=== PATIENT | female | born 1985 | race Caucasian/White ===

== ENCOUNTER 2018-08-26 02:41 | Emergency (ER) | payer SELFPAY ==
[~2018-08-26] VITALS: Ht 157.5 cm; Wt 49.9 kg
[2018-08-26 03:00] VITALS: BP 106/75
--- NOTE | 2018-08-26 03:00 | NUR ---
ED Nurse Note: PT walked into ER stating she has been having episodes of nausea and vomiting episodes since 10 PM yesterday. the pt also stated that she has ate pasta at 8 AM, and then some "tongan soup" at 2 PM. Pt states she feel one of the foods might have caused the nausea episodes as she felt an "unusual abdominal discomfort" at 10 PM pt states since then, shes been having a mix of vomiting episode with either no sumbstance or substance thrown up.
--- NOTE | 2018-08-26 03:03 | Emergency Room Report ---
History of Present Illness General Chief Complaint: Abdominal Pain Source: Patient Present Illness HPI Is a 32-year-old female with no past medical history. She presents with chief complaint of nausea vomiting diarrhea. Onset 1 hour ago. Vomiting is none runny nonbilious. Diarrhea is profuse. Also with abdominal cramping. Nothing made it better. Nothing made it worse. She had postural around 8 PM. She thought maybe food poisoning. Denies any sick contact. Allergies: Coded Allergies: No Known Allergies (Unverified , 08/26/18) Patient History Past Medical History: none, see triage record, old chart reviewed Past Surgical History: none Pertinent Family History: none Social History: Denies: smoking Last Menstrual Period: 08/11/2018 Now: No : 1 Para: 1 Reviewed Nursing Documentation: PMH: Agreed; PSxH: Agreed Review of Systems Eye: Denies: eye pain, blurred vision ENT: Denies: ear pain, nose congestion, throat swelling Respiratory: Denies: cough, shortness of breath Cardiovascular: Denies: chest pain, palpitations Gastrointestinal: Reports: abdominal pain, diarrhea, nausea, vomiting Musculoskeletal: Denies: back pain, joint pain Skin: Denies: rash Neurological: Denies: headache, numbness Endocrine: Denies: increased thirst, increased urine Hematologic/Lymphatic: Denies: easy bruising All Other Systems: negative except mentioned in HPI Physical Exam Vital Signs Date Time Temp Pulse Resp B/P (MAP) Pulse Ox O2 Delivery O2 Flow Rate FiO2 08/26/18 02:48 97.5 94 18 106/75 100 Room Air vitals unremarkable Sp02 EP Interpretation: reviewed, normal General Appearance: well appearing, no apparent distress, alert Head: normocephalic, atraumatic Eyes: bilateral eye PERRL, bilateral eye EOMI ENT: hearing grossly normal, normal pharynx Neck: full range of motion, supple, no meningismus Respiratory: chest non-tender, lungs clear, normal breath sounds Cardiovascular #1: regular rate, rhythm, no murmur Gastrointestinal: non tender, no mass, no organomegaly, no bruit, non-distended , decreased bowel sounds Musculoskeletal: back normal, gait/station normal, normal range of motion Psychiatric: mood/affect normal Skin: warm/dry Medical Decision Making Diagnostic Impression: Primary Impression: Abdominal pain Qualified Codes: R10.84 - Generalized abdominal pain Additional Impression: Nausea vomiting and diarrhea ER Course Patient presents with abdominal pain with nausea vomiting and diarrhea. She showed much better now. She does have leukocytosis. Exam is benign. No localizing pain to the right lower quadrant. She is tolerating by mouth intake and urinating now. She was concerned about a cause of a CT scan. Because symptoms improve and at this moment in time, appendicitis is low on my differential, we'll hold off CT scan for now. If patient has fever or pain localizing to right lower quadrant, told patient come back for CT scan. This is most likely a viral infection versus food poisoning. We will discharge home. No evidence of acute abdomen or obstruction. Last Vital Signs Date Time Temp Pulse Resp B/P (MAP) Pulse Ox O2 Delivery O2 Flow Rate FiO2 08/26/18 02:48 97.5 94 18 106/75 100 Room Air Status: improved Disposition: HOME, SELF-CARE Condition: Stable Scripts Ondansetron (Zofran) 4 Mg Tablet 4 MG ORAL Q6H PRN for Nausea & Vomiting, #10 TAB 0 Refills Prov: Raheel Baum MD 08/26/18 Additional Instructions: Follow-up with your DrUbaldo in 2-3 days if not better. Return if symptom worsen or having fever or pain localized to the right lower quadrant. Raheel Baum MD Aug 26, 2018 03:03
[2018-08-26] MEDS ORDERED: Ketorolac 30mg Inj IV ONE (03:15)
[2018-08-26 03:26] LABS: BASOPHILS % (AUTO) 0.8 % (0.0-2.0); EOSINOPHILS % (AUTO) 1.3 % (0.0-3.0); HEMATOCRIT 46.1 % (37.0-47.0); HEMOGLOBIN 15.8 G/DL (12.0-16.0); LYMPHOCYTES % (AUTO) 9.9 % (20.0-45.0); MEAN CORPUSCULAR VOLUME 94 FL (80-99); PLATELET COUNT 191 K/UL (150-450); RED BLOOD COUNT 4.89 M/UL (4.20-5.40); RED CELL DISTRIBUTION WIDTH 10.4 % (11.6-14.8); WHITE BLOOD COUNT 15.8 K/UL (4.8-10.8)
[2018-08-26] MEDS ORDERED: Morphine Sulfate 4mg/ml Inj (IV/IM USE ONLY) IVP ONE (03:45)
[2018-08-26] MEDS ORDERED: Isovue-300 100ml vial INJ PRN (03:45)
[2018-08-26 03:56] LABS: APPEARANCE,URINE CLEAR; BILIRUBIN, URINE NEGATIVE (NEGATIVE); COLOR,URINE PALE YELLOW; GLUCOSE, URINE (UA) NEGATIVE (NEGATIVE); KETONES,URINE 2+ (NEGATIVE); LEUKOCYTE ESTERASE ,URINE NEGATIVE (NEGATIVE); NITRITE,URINE NEGATIVE (NEGATIVE); PH,URINE 8 (4.5-8.0); PROTEIN,URINE NEGATIVE (NEGATIVE); UROBILINOGEN,URINE NORMAL MG/DL (0.0-1.0)
[2018-08-26 04:32] LABS: ANION GAP 10 mmol/L (5-15); BLOOD UREA NITROGEN 16 mg/dL (7-18); CARBON DIOXIDE 22 MMOL/L (21-32); CHLORIDE 108 MMOL/L (98-107); CREATININE 0.7 MG/DL (0.55-1.30); POTASSIUM 3.9 MMOL/L (3.5-5.1); SODIUM 140 MMOL/L (136-145)
[2018-08-26 04:34] VITALS: BP 106/75
[2018-08-26 05:00] VITALS: BP 110/74
--- NOTE | 2018-08-26 05:00 | NUR ---
ED Nurse Note: Pt is Dc per ERMD order. pt expresses full understanding of ER treatment, DC notes and prescriptions. pt has left with all belongings, DC notes, and prescriptions. ID band removed. IV removed. vital signs are stable. Pt status, condition, and vital signs have been reported to MD prior to DC. pt is instructed to follow up with primary MD as soon as possible. pt is instructed to return to ER if reocurrance of symptoms. pt is able to ambulate with steady gait.
[2018-08-26] MEDS ORDERED: ZOFRAN4 MG ORAL (05:15)
== END 2018-08-26 05:00 | disposition home or self-care (01) ==
LOC: EMR 03:07
DX: R10.9 Unspecified abdominal pain (principal); R11.2 Nausea with vomiting, unspecified; R19.7 Diarrhea, unspecified; D72.829 Elevated white blood cell count, unspecified
CPT/HCPCS: 36415; 80048; 81003; 81025; 85025; 96361; 96374; 96375; 99284; J1885; J2270; J2405